=== PATIENT | female | born 1985 | race Caucasian/White ===

== ENCOUNTER 2019-05-07 15:25 | Inpatient (IN) | payer OTHER ==
[2019-05-07] MEDS ORDERED: PROMETHAZINE HCL 25 MG/1 ML VIAL IVPUSH ONE (16:25)
[2019-05-07] MEDS ORDERED: BUTORPHANOL TARTRATE 1 MG/ML VIAL IVPB ONE (16:25)
[2019-05-07] MEDS ORDERED: ELECTROLYTE-148 SOLN 1,000 ML IV SCH (16:30)
--- NOTE | 2019-05-07 16:44 | HP ---
Past Medical History - Admission History of Present Illness: 34 yo @ 38 0/7 wks by first trimester ultrasound, EDC 05/21/2019 complicated by: 1. maternal obesity - starting BMI 31; 28 lb wt gain normal early GCT (82) and 26-28 wk GCT - elevated 140, normal GTT last ultrasound 04/24/2019 (36 wks) - EFW 6lb 1 oz; 2740g; 41%ile 2. hx/o gastric bypass surgery 2014 3. labile BPs starting at 36 wks Negative preeclamptic labs 24 H urine protein 115 Patient presents with a chief complaint of passing her mucous plug and leakage of fluid at around 0830 this AM. She denies any strong regular contractions, reports movement. No vaginal bleeding. On exam, nitrazine positive, 3 cm dilated 70% effaced, -3 station. - Past Medical History Cardiovascular: No: HTN Pulmonary: No: Asthma ...: 1 ...Para: 0 - Past Surgical History Past Surgical History: Yes: None Hx Myomectomy: No Hx Transabdominal Cerclage: No - Smoking History Smoking history: Never smoked Have you smoked in the past 12 months: No - Alcohol/Substance Use Hx Alcohol Use: Yes (RARE) - Social History History of Recent Travel: No Home Medications - Allergies Allergies/Adverse Reactions: Allergies Allergy/AdvReac Type Severity Reaction Status Date / Time No Known Drug Allergies Allergy Verified 12/10/14 07:26 - Home Medications Home Medications: Ambulatory Orders Famotidine [Pepcid] 20 mg PO BID #60 tablet 12/12/14 Oxycodone HCl 5 mg PO Q6H PRN #0 capsule 12/12/14 Clindamycin [Cleocin -] 300 mg PO TID #21 capsule 02/16/16 Ketoconazole 2% Shampoo [Nizoral 2% Shampoo -] 1 applic TP DAILY #1 bottle 09/14 Ketoconazole 2% Shampoo [Nizoral 2% Shampoo -] 1 applic TP DAILY #1 bottle 02/06 Family Medical History Family History: Denies Review of Systems - Review of Systems Constitutional: reports: No Symptoms Cardiovascular: reports: No Symptoms Respiratory: reports: No Symptoms, Snoring Genitourinary: reports: No Symptoms Musculoskeletal: reports: No Symptoms Neurological: reports: No Symptoms Psychiatric: reports: No Symptoms Physical Exam - Maternity Constitutional: Yes: Well Nourished, No Distress, Calm Cardiovascular: Yes: Regular Rate and Rhythm - Abdominal Exam/OB Number of Fetuses: Single Presentation: Vertex Contractions: Yes Regularity: Irregular Intensity: Mild/Mod Monitor Mode: External Heart Rate (range): 120 Category: I Accelerations: Non-Uniform Decelerations: None - Vaginal Exam/OB Vaginal Bleediing: No Speculum Exam: No Dilatation (cm): 3 Effacement (%): 70 Amniotic Membrane Status: Ruptured Nitrazine Test: Positive Station: -3 - Physical Exam Edema: Yes Edema: LLE: Trace, RLE: Trace ...Motor Strength: WNL Psychiatric: Yes: WNL - Labs Lab Results: PNL: A positive, antibody negative; RPR NR; HIV negative; HBs Ag neg; HCV neg; Hg shubham AA; Rubella Immune; varicella immune; parvo immune; Sequential 1 & 2 WNL ; Inheritest core WNL; GBS negative; early and 26 wk GCT as above Hemorrhage Risk Assessment - Risk Factors Medium Risk Factors: Yes: None High Risk Factors: Yes: None Risk Score: 1 Risk Level: Medium Risk Assessment/Plan 34 yo @ 38 0/7 wks PROM 1. Admit to L&D 2. Reviewed augmentation with pitocin, risks/benefits discussed 3. GBS negative 4. Category I FHT 5. Will proceed with expectant management
[2019-05-07 16:55] VITALS: BMI 36.7
[2019-05-07] MEDS ORDERED: OXYTOCIN 30 UNITS in 0.9% NS 30 UNIT/500 ML INFUS.BAG IVPB SCH (18:30)
[2019-05-07 19:19] LABS: BASO % 0.3 % (0-2.0); EOS % 0.5 % (0-4.5); HEMATOCRIT 33.8 % (32.4-45.2); HEMOGLOBIN 11.1 GM/dL (10.7-15.3); LYMPH % 13.4 % (8-40); MCH 29.9 pg (25.7-33.7); MCHC 32.8 g/dl (32.0-36.0); MEAN CELL VOLUME 91.3 fl (80-96); MEAN PLT VOLUME 9.6 fl (7.5-11.1); MONO % 4.8 % (3.8-10.2); PLATELET COUNT 268 K/MM3 (134-434); RDW 13.8 % (11.6-15.6); WHITE BLOOD COUNT 11.1 K/mm3 (4.0-10.0)
[2019-05-07 19:29] LABS: INR 0.92 (0.83-1.09); PROTHROMBIN TIME (PATIENT) 10.9 SEC (9.7-13.0)
[2019-05-07 19:32] LABS: ACTIVATED PTT 29.4 SECONDS (25.2-36.5); BLOOD UREA NITROGEN 5.3 mg/dL (7-18); CALCIUM 8.6 mg/dL (8.5-10.1); CREATININE 0.5 mg/dL (0.55-1.3); POTASSIUM 3.9 mmol/L (3.5-5.1)
[2019-05-07] MEDS ORDERED: FENTANYL/BUPIVACAINE/NS/PF - PCEA - 50 ML DISP.SYRIN EP ONE (20:38)
[2019-05-07] MEDS ORDERED: BUPIVACAINE HCL/PF 2.5 MG/ML - 30 ML VIAL IJ ONE (20:47)
[2019-05-07] MEDS ORDERED: LIDO 2%/EPI 1:200000 PRESRVFRE (20 ML SDVIAL) ONE (20:47)
[2019-05-07] MEDS ORDERED: NALOXONE HCL 0.4 MG/ML VIAL IVPUSH PRN (21:14)
[2019-05-07] MEDS ORDERED: FENTANYL/BUPIVACAINE/NS/PF - PCEA - 50 ML DISP.SYRIN EP SCH (21:15)
--- NOTE | 2019-05-07 23:02 | PN ---
Ante-Partal Exam - Subjective Subjective: Patient comfortable s/p epidural Vital Signs: Vital Signs Temperature 98.0 F 05/07/19 21:00 Pulse Rate 95 H 05/07/19 21:15 Respiratory Rate 18 05/07/19 21:15 Blood Pressure 119/78 05/07/19 21:15 O2 Sat by Pulse Oximetry (%) 99 05/07/19 21:15 Bleeding: No Headache: No Visual changes: No Right upper quadrant pain: No - Contractions Contractions: Yes Regularity: Regular Intensity: Unaware Monitor Mode: External - Exam during Labor Heart Rate: 135 Variability: Moderate Category: I Monitor Accelerations: Present Monitor Decelerations: None Exam: Vaginal Dilatation (cm): 9.5 Effacement (%): 100 Amniotic Membrane Status: Ruptured Presentation: Vertex Station: 0 - Intrapartum Hemorrhage Risk Medium Risk Factors: None High Risk Factors: None Risk Score: 0 Risk Level: Low Risk - Assessment/Plan Assessment/Plan: 34 yo active labor 1. Good cervical change on pitocin 5 2. GBS negative 3. Pain well controlled with epidural 4. Will proceed with expectant management
[2019-05-07] MEDS ORDERED: LIDOCAINE HCL 1% PRESERVATIVE FREE - 30ML VIAL ONE (23:26)
[2019-05-07] MEDS ORDERED: OXYTOCIN 20 UNITS in 0.9% NS 20 UNIT/1,000 ML INFUS.BAG IV ONE (23:26)
[2019-05-08] MEDS ORDERED: BENZOCAINE 28 GM HEMORRHOIDAL OINTMENT TP PRN (00:10)
[2019-05-08] MEDS ORDERED: BISACODYL 10 MG SUPP.RECT RC PRN (00:10)
[2019-05-08] MEDS ORDERED: WITCH HAZEL 50% (TUCKS) 40 PAD/JAR PAD TP PRN (00:10)
[2019-05-08] MEDS ORDERED: BENZOCAINE 20% 57 GM BOTTLE TP PRN (00:10)
[2019-05-08] MEDS ORDERED: METHYLERGONOVINE MALEATE 0.2 MG/1 ML AMP IM PRN (00:10)
--- NOTE | 2019-05-08 00:14 | PN ---
Delivery - Delivery Vaginal Delivery: No Problems Episiotomy/Laceration: Midline, 1st degree EBL (cc): 300 Delivery, Single - Stages of Labor Date 1st Stage Initiatied: 05/07/19 Time 1st Stage Initiated: 21:00 Date 2nd Stage Initiated: 05/07/19 Time 2nd Stage Initiated: 23:15 Date of Delivery: 05/07/19 Time of Delivery: 23:41 Date Placenta Delivered: 05/07/19 Time Placenta Delivered: 23:59 Placenta: Yes: Spontaneous - Condition of Gender: Female Position: Right, OA Total Hours ROM (Hrs/Mins): 15 hours 29 minutes - 1 Minute Total Score: 9 5 Minutes Total Score: 9 - [place] Feeding Plan Initial Plan: Exclusive throughout hospitalization Remarks - Remarks Remarks: Patient progressed to fully dilated and at 2341 via delivered a viable female infant in RESHMA position, APGARs 9,9. Weight and length unknown at this time. Head delivered spontaneously, right compound hand noted, nuchal cord noted and delivered through; followed by shoulders and body without difficulty. Infant with spontaneous cry and placed on mother's abdomen. Nose and mouth was bulb suctioned. Cord was clamped and cut. Perineum and vagina examined, a first degree laceration vaginal and bilateral labial lacerations were noted and repaired in the usual fashion. Placenta was delivered spontaneously and intact. 20 units of pitocin in 1 L IVF was given. All counts correct x 2. Mother and infant stable in LDR. EBL 300cc.
[2019-05-08] MEDS ORDERED: OXYTOCIN 20 UNITS in 0.9% NS 20 UNIT/1,000 ML INFUS.BAG IV SCH (00:15)
--- NOTE | 2019-05-08 00:39 | PN ---
Post Progress Note - Subjective Subjective: Patient without acute complaints. Reports tolerating oral intake without nausea or vomiting. Ambulating without dizziness. Denies fevers or chills. Pain well controlled with oral pain medication. without difficulty. Passing flatus. Post Day: 1 Vital Signs: Vital Signs Temperature 98.8 F 05/07/19 23:00 Pulse Rate 95 H 05/07/19 21:15 Respiratory Rate 18 05/07/19 21:15 Blood Pressure 119/78 05/07/19 21:15 O2 Sat by Pulse Oximetry (%) 99 05/07/19 21:15 Breast Exam: Yes: Soft Uterus: Yes: Fundus Firm, Fundus below umbilicus Abdomen/GI: Yes: Abdomen soft, Passing flatus, Tolerating PO. No: Abdominal Distention, Tender Lochia: Yes: Rubra Lochia, amount: Moderate Extremities: Yes: Calves non-tender, Edema (trace) Perineum: Yes: Laceration Activity: Ambulating - Labs Labs: CBC WBC 11.1 K/mm3 (4.0-10.0) H 05/07/19 18:35 RBC 3.70 M/mm3 (3.60-5.2) 05/07/19 18:35 Hgb 11.1 GM/dL (10.7-15.3) 05/07/19 18:35 Hct 33.8 % (32.4-45.2) D 05/07/19 18:35 MCV 91.3 fl (80-96) 05/07/19 18:35 MCH 29.9 pg (25.7-33.7) D 05/07/19 18:35 MCHC 32.8 g/dl (32.0-36.0) 05/07/19 18:35 RDW 13.8 % (11.6-15.6) 05/07/19 18:35 Plt Count 268 K/MM3 (134-434) 05/07/19 18:35 MPV 9.6 fl (7.5-11.1) 05/07/19 18:35 Absolute Neuts (auto) 9.0 K/mm3 (1.5-8.0) H 05/07/19 18:35 Neutrophils % 81.0 % (42.8-82.8) D 05/07/19 18:35 Lymphocytes % 13.4 % (8-40) D 05/07/19 18:35 Monocytes % 4.8 % (3.8-10.2) 05/07/19 18:35 Eosinophils % 0.5 % (0-4.5) 05/07/19 18:35 Basophils % 0.3 % (0-2.0) 05/07/19 18:35 Nucleated RBC % 0 % (0-0) 05/07/19 18:35 Assessment/Plan 34 yo PPD #1 s/p , afebrile, vital signs stable, doing well 1. Continue routine care. 2. Follow up AM CBC 3. Rh positive status, no rhogam indicated. 4. Encourage ambulation 5. Continue oral pain medication 6. Anticipate discharge home day #2
[2019-05-08] MEDS: IBUPROFEN 600 MG TABLET (FP) PO PRN ×2 (06:32→15:24)
[2019-05-08] MEDS: ACETAMINOPHEN 325 MG TABLET (FP) PO PRN ×2 (06:33→15:25)
--- NOTE | 2019-05-08 07:40 | DS ---
Physical Exam-[employer] Vital Signs: Vital Signs Temperature 98.8 F 05/08/19 06:00 Pulse Rate 76 05/08/19 06:00 Respiratory Rate 18 05/08/19 06:00 Blood Pressure 124/68 05/08/19 06:00 O2 Sat by Pulse Oximetry (%) 100 05/08/19 01:00 Labs: CBC, BMP 05/07/19 18:35 05/07/19 18:35 Delivery - Delivery Vaginal Delivery: No Problems Type of Anesthesia: Local, Epidural Episiotomy/Laceration: Midline, 1st degree EBL (cc): 300 Delivery, Single - Stages of Labor Date 1st Stage Initiatied: 05/07/19 Time 1st Stage Initiated: 21:15 Date 2nd Stage Initiated: 05/07/19 Time 2nd Stage Initiated: 23:15 Date of Delivery: 05/07/19 Time of Delivery: 23:41 Time Placenta Delivered: 23:59 Placenta: Yes: Spontaneous - Condition of Infant Clinical Law Professor/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 Present: No Gender: Female Weight: 7 lb 5 oz Position: Right, OA Total Hours ROM (Hrs/Mins): 15 hours 29 minutes - 1 Minute Total Score: 9 5 Minutes Total Score: 9 - Feeding Plan Initial Plan: Exclusive throughout hospitalization Discharge Summary Problems reviewed: Yes Reason For Visit: PROM Procedures: Principal: Vaginal delivery Other Procedures: Pitocin Augmentation Hospital Course: Patient was admitted PROM, irregular contractions and underwent pitocin augmentation She progressed to deliver a viable female PPD # 1 patient ambulated, voiding, passing gas, tolerating oral intake and with adequate pain control. She fulfilled all criteria for discharge PPD #2 Condition: Good - Instructions Diet, Activity, Other Instructions: Follow up in 4-6 weeks for visit Physical activity Resume your normal everyday activity as tolerated no heavy lifting or exercise until seen by your surgeon. You may walk unlimited gretel of and climb stairs. You may resume driving the car when you feel safe and comfortable behind the wheel. No sexual activity as instructed. Diet There are no dietary restrictions. Eat healthy, high-fiber foods. Drink 6 to 8 glasses of liquid each day. This will assist in keeping your bowels are regular. Pain management You may take Tylenol or acetaminophen or Ibuprofen (for example, Motrin, Advil etc.) for pain. Call MD for any of the following: Severe pain not relieved by medication Fever of 101 or higher Excessive bleeding or drainage on dressing Inability to urinate Referrals: Soila Torre MD [Staff Physician] - Disposition: HOME - Home Medications Comprehensive Discharge Medication List: Ambulatory Orders Folic Acid - 4 mg PO DAILY 05/07/19 Vits96/Iron Fum/Folic [ Tablet] 1 tab PO DAILY 05/07/19 Sennosides [Senna -] 1 tab PO Q3D 05/07/19
[2019-05-08] MEDS: PRENATAL VITAMINS W/ FOLIC ACID TABLET (FP) PO SCH (09:18)
[2019-05-09] MEDS: ACETAMINOPHEN 325 MG TABLET (FP) PO PRN (03:38)
[2019-05-09] MEDS: IBUPROFEN 600 MG TABLET (FP) PO PRN (03:39)
[2019-05-09 07:15] LABS: BASO % 0.4 % (0-2.0); EOS % 1.5 % (0-4.5); HEMATOCRIT 27.9 % (32.4-45.2); HEMOGLOBIN 9.5 GM/dL (10.7-15.3); LYMPH % 15.6 % (8-40); MCH 31.4 pg (25.7-33.7); MCHC 34.1 g/dl (32.0-36.0); MEAN CELL VOLUME 92.1 fl (80-96); MONO % 5.8 % (3.8-10.2); NEUT % 76.7 % (42.8-82.8); PLATELET COUNT 206 K/MM3 (134-434); RBC 3.02 M/mm3 (3.60-5.2); RDW 14.1 % (11.6-15.6); WHITE BLOOD COUNT 9.2 K/mm3 (4.0-10.0)
--- NOTE | 2019-05-09 08:08 | PN ---
Progress Note (short form) - Note Progress Note: ppd 1 s/p / doing well, no c/o , voids ok, no excess vaginal bleeding CBC, BMP 05/09/19 07:00 05/07/19 18:35 Last Vital Signs Temp Pulse Resp BP Pulse Ox 98.1 F 84 18 139/84 100 05/08/19 22:00 05/08/19 22:00 05/08/19 22:00 05/08/19 22:00 05/08/19 01:00 abdomen soft, no distension, no cva uterus firm , non tender lochia mild no calf tenderness plan ambulate ,iron, vit
[2019-05-09] MEDS: PRENATAL VITAMINS W/ FOLIC ACID TABLET (FP) PO SCH (09:20)
[2019-05-09 09:24] VITALS: BP 135/84; PULSE 78; TEMP 98
[2019-05-09] MEDS ORDERED: SENNOSIDES/DOCUSATE COMBO (SENNA PLUS) TABLET (UD) PO PRN (22:00)
== END 2019-05-09 11:40 | disposition home or self-care (01) ==
LOC: JDEL 15:25 → JLDR 16:10 → J3W 05-08 02:10
PROVIDERS: ADMIT Obstetrics & Gynecology; ATTEND Obstetrics & Gynecology
DX: O60.00 Preterm labor without delivery, unspecified trimester (principal)
CPT/HCPCS: 36415; 59409; 80048; 85025; 85610; 85730; 86593; 86850; 86900; 86901

== ENCOUNTER 2021-08-10 08:15 | Inpatient (IN) | payer BC ==
[2021-08-10 10:14] VITALS: BMI 39.4
[2021-08-10] MEDS: OXYTOCIN 30 UNITS in 0.9% NS 30 UNIT/500 ML INFUS.BAG IVPB SCH (10:15)
[2021-08-10] MEDS ORDERED: OXYTOCIN 30 UNITS in 0.9% NS 30 UNIT/500 ML INFUS.BAG IVPB ONE (10:15)
[2021-08-10 10:17] LABS: BASO % 0.2 % (0-2.0); EOS % 1.1 % (0-4.5); HEMATOCRIT 31.5 % (32.4-45.2); HEMOGLOBIN 10.2 GM/dL (10.7-15.3); LYMPH % 15.5 % (8-40); MCH 27.8 pg (25.7-33.7); MCHC 32.4 g/dl (32.0-36.0); MEAN CELL VOLUME 85.9 fl (80-96); MEAN PLT VOLUME 9.4 fl (7.5-11.1); MONO % 4.1 % (3.8-10.2); NEUT % 79.1 % (42.8-82.8); PLATELET COUNT 251 10^3/uL (134-434); RBC 3.67 M/mm3 (3.60-5.2); RDW 15.6 % (11.6-15.6); WHITE BLOOD COUNT 8.1 K/mm3 (4.0-10.0)
[2021-08-10] MEDS ORDERED: FENTANYL/BUPIVACAINE/NS/PF - PCEA - 50 ML DISP.SYRIN EP ONE (10:31)
[2021-08-10 10:41] LABS: BLOOD UREA NITROGEN 4.5 mg/dL (7-18); CALCIUM 8.8 mg/dL (8.5-10.1)
[2021-08-10 10:43] LABS: INR 0.99 (0.83-1.09); PROTHROMBIN TIME (PATIENT) 11.4 SEC (9.7-13.0)
[2021-08-10 10:44] LABS: CREATININE 0.5 mg/dL (0.55-1.3); URIC ACID 4.1 mg/dL (2.6-7.2)
[2021-08-10 10:46] LABS: ACTIVATED PTT 27.9 SECONDS (25.2-36.5)
[2021-08-10] MEDS ORDERED: ELECTROLYTE-148 SOLN 500 ML IV ONE (10:54)
[2021-08-10] MEDS: FENTANYL/BUPIVACAINE/NS/PF - PCEA - 50 ML DISP.SYRIN EP SCH (11:15)
[2021-08-10] MEDS ORDERED: OXYTOCIN 20 UNITS in 0.9% NS 20 UNIT/1,000 ML INFUS.BAG IV ONE (11:19)
[2021-08-10] MEDS ORDERED: LIDOCAINE HCL 1% PRESERVATIVE FREE - 30ML VIAL ONE (11:19)
[2021-08-10] MEDS ORDERED: BENZOCAINE 20% 57 GM BOTTLE TP PRN (12:37)
[2021-08-10] MEDS ORDERED: BENZOCAINE 28 GM HEMORRHOIDAL OINTMENT TP PRN (12:37)
[2021-08-10] MEDS ORDERED: WITCH HAZEL 50% (TUCKS) 40 PAD/JAR PAD TP PRN (12:37)
[2021-08-10] MEDS ORDERED: ACETAMINOPHEN 325 MG TABLET (FP) PO PRN (12:37)
[2021-08-10] MEDS ORDERED: METHYLERGONOVINE MALEATE 0.2 MG/1 ML AMP IM PRN (12:37)
[2021-08-10] MEDS ORDERED: BISACODYL 10 MG SUPP.RECT RC PRN (12:37)
[2021-08-10] MEDS ORDERED: OXYTOCIN 20 UNITS in 0.9% NS 20 UNIT/1,000 ML INFUS.BAG IV SCH (12:45)
[2021-08-10] MEDS: ELECTROLYTE-148 SOLN 1,000 ML IV SCH (13:06)
[2021-08-10] MEDS ORDERED: IBUPROFEN 600 MG TABLET (FP) PO ONE (13:31)
[2021-08-10] MEDS: IBUPROFEN 600 MG TABLET (FP) PO PRN ×3 (13:40→21:04)
[2021-08-10] MEDS ORDERED: NALOXONE HCL 0.4 MG/ML VIAL IVPUSH PRN (13:51)
[2021-08-11] MEDS: IBUPROFEN 600 MG TABLET (FP) PO PRN ×2 (04:23→09:56)
[2021-08-11 07:21] LABS: BASO % 0.3 % (0-2.0); EOS % 1.1 % (0-4.5); HEMATOCRIT 27.8 % (32.4-45.2); LYMPH % 12.1 % (8-40); MCH 27.9 pg (25.7-33.7); MCHC 32.5 g/dl (32.0-36.0); MEAN CELL VOLUME 85.9 fl (80-96); MEAN PLT VOLUME 9.1 fl (7.5-11.1); MONO % 4.5 % (3.8-10.2); PLATELET COUNT 197 10^3/uL (134-434); RBC 3.24 M/mm3 (3.60-5.2); RDW 15.7 % (11.6-15.6); WHITE BLOOD COUNT 8.8 K/mm3 (4.0-10.0)
[2021-08-11] MEDS: PRENATAL VITAMINS W/ FOLIC ACID TABLET (FP) PO SCH (09:56)
[2021-08-11] MEDS: FENTANYL/BUPIVACAINE/NS/PF - PCEA - 50 ML DISP.SYRIN EP SCH (19:24)
[2021-08-11] MEDS: ELECTROLYTE-148 SOLN 1,000 ML IV SCH (19:24)
[2021-08-11] MEDS: OXYTOCIN 30 UNITS in 0.9% NS 30 UNIT/500 ML INFUS.BAG IVPB SCH (19:24)
[2021-08-11] MEDS ORDERED: SENNOSIDES/DOCUSATE COMBO (SENNA PLUS) TABLET (UD) PO PRN (22:00)
[2021-08-12] MEDS: IBUPROFEN 600 MG TABLET (FP) PO PRN (00:10)
[2021-08-12] MEDS: PRENATAL VITAMINS W/ FOLIC ACID TABLET (FP) PO SCH (09:54)
[2021-08-12 12:26] VITALS: BP 121/78; PULSE 87; TEMP 98.1
== END 2021-08-12 11:20 | disposition home or self-care (01) | DRG 807 ==
LOC: JLDR 08:15 → J3W 14:05
PROVIDERS: ADMIT Obstetrics & Gynecology; ATTEND Obstetrics & Gynecology
PROC: 10E0XZZ Delivery of Products of Conception, External Approach (ICD-10-PCS; principal; 2021-08-10)
DX: O13.4 Gestational [pregnancy-induced] hypertension without significant proteinuria, complicating childbirth (principal); Z37.0 Single live birth; O99.214 Obesity complicating childbirth; Z3A.38 38 weeks gestation of pregnancy
CPT/HCPCS: 36415; 59409; 80048; 82977; 83010; 84450; 84460; 84550; 85025; 85045; 85610; 85730; 86780; 86850; 86900; 86901; C9803; U0003; U0005